=== PATIENT | female | born 1970 | race Caucasian/White ===

== ENCOUNTER → 2017-01-11 | Outpatient (CLI) | payer BC ==
[~2017-01-11] MED LIST: ALBU8.5H INH; ETAN50DI SQ; FOLI1TAB15 PO; HYDR-4246 PO; HYDR200T4 PO; LEVO100T12 PO; MELO15TA12 PO; MONT10TA25 PO; OXYM30MI9 NAS; P-EP-93 PO; PREG225C PO
[2017-01-11 18:03] LABS: BASOPHILS % (AUTO) 0.5 % (0-2); EOSINOPHILS # (AUTO) 0.2 T/MM3 (0-0.5); EOSINOPHILS % (AUTO) 2.4 % (0-4); HCT - HEMATOCRIT 41.5 % (36-46); HGB - HEMOGLOBIN 13.7 GM/DL (12-16); IMMATURE GRANULOCYTE # (AUTO) 0.03 T/MM3 (0.00-0.03); IMMATURE GRANULOCYTE % (AUTO) 0.4 % (0.0-0.5); LYMPHOCYTES # (AUTO) 2.6 T/MM3 (1-4.8); LYMPHOCYTES % (AUTO) 31.8 % (23-45); MEAN CORPUSCULAR HGB 29.8 UUG (26-34); MEAN CORPUSCULAR VOLUME 90.2 UM3 (80-100); MEAN PLATELET VOLUME 9.8 UM3 (9.4-12.4); MONOCYTES # (AUTO) 0.4 T/MM3 (0-0.8); MONOCYTES % (AUTO) 5.1 % (0-9.0); NEUTROPHILS #(AUTO)-ABSOLUTE 4.9 T/MM3 (1.8-7.7); NEUTROPHILS % (AUTO) 59.8 % (33-66); WBC - WHITE BLOOD COUNT 8.2 T/MM3 (4.5-11.0)
[2017-01-11 18:13] LABS: ALBUMIN 4.4 G/DL (3.5-5.0); ALBUMIN/GLOBULIN RATIO 1.5 RATIO (1.1-2.2); ALKALINE PHOSPHATASE 63 U/L (38-126); ALT (SGPT) 33 U/L (9-52); ANION GAP 12 MEQ/L (5-15); AST (SGOT) 30 U/L (14-36); BUN/CREATININE RATIO 10 RATIO (6-26); CALCIUM 9.6 MG/DL (8.4-10.2); CHLORIDE 107 MEQ/L (98-107); CO2 - CARBON DIOXIDE 28 MEQ/L (22-30); CREATININE 1.2 MG/DL (0.7-1.2); GLOMERULAR FILTRATION RATE 49; GLUCOSE 100 MG/DL (65-110); POTASSIUM 4.1 MEQ/L (3.6-5); SODIUM 147 MEQ/L (134-144); TOTAL PROTEIN 7.4 G/DL (6.3-8.2)
== END ==
LOC: LAB 17:44
PROVIDERS: ATTEND Family Medicine
DX: Z01.818 Encounter for other preprocedural examination (principal)
CPT/HCPCS: 36415; 80053; 85025

== ENCOUNTER 2017-01-24 06:51 | Inpatient (IN) | payer BC ==
--- NOTE | 2017-01-10 16:39 | NUR ---
JOINT REPLACEMENT PREOP CLASS PATIENT ATTENDED JOINT REPLACEMENT PREOP CLASS. CASE MANAGEMENT CONTACT INFORMATION PROVIDED. EDUCATION WAS PROVIDED REGARDING WHAT TO EXPECT BEFORE, DURING AND AFTER SURGERY. INCLUDING: OVERVIEW OF ANATOMY AND PHYSIOLOGY HOSPITAL TREATMENT SCHEDULE THERAPY DEMONSTRATION CASE MANAGEMENT RESPONSIBILITIES DISCHARGE PLANNING EQUIPMENT NEEDS JOINT REPLACEMENT WORKBOOK ANTI-COAGULATION SURGERY STRONG NUTRITIONAL PROTOCOL DISCHARGE INSTRUCTIONS [facility] PATIENT PORTAL, WITH INSTRUCTIONS CJR AND PREOP SURVERY PREOP BATHING- CHG GIVEN ALL PATIENT'S QUESTIONS ANSWERED TO THEIR SATISFACTION. PATIENTS AND COACHES ENCOURAGED TO CALL WITH ANY ADDITIONAL QUESTIONS OR CONCERNS. CM FOLLOWING FOR TRANSITIONAL CARE PLANNING NEEDS DURING HOSPITALIZATION.
--- NOTE | 2017-01-19 10:38 | NUR ---
Telephone conversation to inform patient that Dr Harvey (patient scheduling manager) recommends that she hold her Enbrel injection on 01-23-17 and until the stitches/ekaterina are removed. Ok to continue Plaquenil. Patient expressed understanding.
--- NOTE | 2017-01-23 14:33 | NUR ---
NN CHECK OXIMETER IMMEDIATELY AFTER AMBULATING TO GET A PREOP BASELINE READING.
[2017-01-24] VITALS (28 sets, daily range): BP systolic 96–135; BP diastolic 53–69; PULSE 68–102; RESP 12–20; TEMP 97.1–98.7; O2SAT 91–100; Ht 160 cm; Wt 97.2 kg
[~2017-01-24] VITALS: Ht 160 cm; Wt 97.2 kg
[~2017-01-24 06:51] MED LIST changes: +CLINDAMYCIN 900mg IVPB 50 ML IV ONE; +FAMOTIDINE 20mg IVPB 50 ML IV ONE; +FLUT9.9S EA NOSTRIL; +HYDR-3989 PO; -HYDR-4246 PO; +LIDOCAINE 1% (10mg/ml) 2ml SDV ID ONE; -MELO15TA12 PO; +METOCLOPRAMIDE 10mg/2ml INJECTION IV ONE; -OXYM30MI9 NAS; +SULF1TAB42 PO; +TRAM50TA4 PO
--- OUTSIDE RECORDS SUMMARY | 2017-01-24 06:57 | XMS REPORT | Continuity of Care Document ---
Author Author KELLY [facility] Organization [facility] Address Unknown Phone Unavailable Support Name Relationship Address Phone MECCA MORENO MD Caregiver [address] [place] [id number] Unavailable FEBRUARYHUE DO Caregiver [address] [place] [address] Unavailable CADENCE MEARZ Next Of Kin [address] [place] [id number] C Insurance Providers Guarantor Chinedu Meraz Address [address] [facility] [place] [address] Email [email or web address] Policy Number [id number] Subscriber's Name Chinedu Meraz Relationship 18 Self Group Number [id number] Advance Directives Directive Response Recorded Date/Time Advanced Directives Type None 11/24/16 9:41pm Chief Complaint and Reason for Visit Chief Complaint Dyspnea/Respdistress Reason for Visit Allergic asthma [id number] GERD (gastroesophageal reflux disease) Problems Past Problems Medical Problem Onset Date Allergic asthma Unknown GERD (gastroesophageal reflux disease) Unknown RL (obstructive sleep apnea) Unknown Pneumonitis, aspiration Unknown Medications Current Home Medications Medication Dose Units Route Directions Days Qty Instructions Start Date Albuterol Sulfate (Proair Hfa 90 Mcg/Actuation) 8.5 Gm Hfa.aer.ad 2 Puff Inhalation Every 4 Hours for Shortness Of Air/Wheezing 30 Days 1 Inhaler 11/24/16 Etanercept (Enbrel) 50 Mg/1 Ml Syringe 50 Mg Sub-Q 1 Week 12 Syringe 10/14/16 Folic Acid 1 Mg Tablet 2 Tab Oral Daily 10/14/16 Hydrocodone/Acetaminophen ([place] 5-325 Tablet) 5-325 Tablet 1-2 Tab Oral Every 4 Hours as needed for Pain 30 Tablet 10/15/16 Hydroxychloroquine Sulfate 200 Mg Tablet 1 Tab Oral Twice Daily With Meals BEST TAKEN WITH FOOD 10/14/16 Levothyroxine Sodium 100 Mcg Tablet 1 Tab Oral Before Breakfast Once daily before breakfast 10/14/16 Loratadine/Pseudoephedrine (Claritin-D 12 Hour Tablet) 1 Each Tab.er.12h 10 Mg Oral Twice A Day Take 1 tablet, by mouth, 2 times a day. 10/14/16 Meloxicam (Mobic) 15 Mg Tablet 15 Mg Oral Daily 60 11/24/16 Montelukast Sodium 10 Mg Tablet 10 Mg Oral Bedtime Take 1 tablet, by mouth, one time a day (at bedtime). 10/14/16 Oxymetazoline Hcl (Nasal [place]) 30 Ml Mist 1 [place] Intranasal As Needed 10/14/16 Pregabalin (Lyrica) 225 Mg Capsule 1 Cap Oral Twice A Day Social History Social History Problem Response Recorded Date/Time Onset Date Status Has the pt used tobacco in the last 12 months No 10/14/2016 7:22pm Not Applicable Not Applicable Query Response Start Date Stop Date Smoking Status Never smoker Hospital Discharge Instructions No hospital discharge instructions. Plan of Care Discharge Date 11/24/16 11:34pm Disposition 01 DISCHARGED HOME, SELF-CARE Condition at Discharge Improved Instructions/Education Provided Reactive Airways Disease (ED) Prescriptions See Medication Section Referrals MECCA MORENO MD Order Date: 1 Week Address: [address] [place] [address] [place] [address] Note: Additional Instructions/Education You have lung and throat irritation caused by stomach acid refluxing into your esophagus. Your reflux is probably caused by your now untreated sleep apnea. Follow up with your doctor to discuss treatment of your asthma, reflux, and sleep apnea. I would recommend that you work with your doctor to find a way to tolerate your CPAP. Follow up with your doctor. Care Plan and Goals Physician Care Plan Problem: Asthma exacerbation Goal: Follow up with primary care provider Instructions: Take medications and follow care plan as discussed/written Functional Status No functional status results. Allergies, Adverse Reactions, Alerts Allergen Type Severity Reaction Status Last Updated Penicillin Allergy Mild HIVES Active 11/24/16 Lee And Derivatives Adverse Reaction Severe Active 11/24/16 Codeine Allergy Mild Active 11/24/16 Cephalexin Allergy Mild HIVES Active 11/24/16 Azithromycin Allergy Mild HIVES Active 11/24/16 Immunizations Query Response on File Recorded Date/Time Hx Influenza Vaccination Y 2015 10/14/16 7:22pm Hx Pneumococcal Vaccination Y 3 YEARS AGO 10/14/16 7:22pm Hx Influenza Vaccination Y JUL. 201510/14/16 7:22pm Influenza Vaccine Hx 2015 11/24/16 10:41pm Vital Signs Acute Vital Signs Vital Response Date/Time Temperature (Fahrenheit) 98.8 deg F (96.8 - 99.1) 11/24/2016 11:34pm Temperature (Calculated Celsius) 37.05857 degrees C (36.0 - 37.3) 11/24/2016 11:34pm Temperature Source Oral 10/15/2016 7:30pm Pulse Rate (adult) 75 bpm (60 - 100) 11/24/2016 11:34pm Respiratory Rate 16 breaths/min (10 - 20) 11/24/2016 11:34pm O2 Sat by Pulse Oximetry 99 % (90 - 100) 11/24/2016 11:34pm Oxygen Delivery Method Room Air 10/15/2016 7:30pm Oxygen Delivery Method Room Air 10/15/2016 4:17pm Oxygen Flow Rate 2.00 L/min 10/15/2016 11:35am Blood Pressure 106/59 mm Hg 11/24/2016 11:34pm Blood Pressure Source Automatic Cuff 10/15/2016 7:30pm Height (Feet) 5 feet 11/24/2016 9:41pm Height (Inches) 3.00 inches 11/24/2016 9:41pm Weight (Kilograms) 100.100 kg 11/24/2016 9:41pm Body Mass Index (BMI) 39.0 11/24/2016 9:41pm Results Laboratory Results Test Name Result Units Flags Reference Collection Date/Time Result Date/ Time Comments White Blood Count 9.4 T/MM3 4.5-11.0 10/14/2016 4:54pm 10/14/2016 5: 16pm Red Blood Count 4.72 M/MM3 4.00-5.20 10/14/2016 4:54pm 10/14/2016 5: 16pm Hemoglobin 14.1 GM/DL 12-16 10/14/2016 4:54pm 10/14/2016 5:16pm Hematocrit 42.3 % 36-46 10/14/2016 4:54pm 10/14/2016 5:16pm Mean Corpuscular Volume 89.6 UM3 80-100 10/14/2016 4:54pm 10/14/2016 5: 16pm Mean Corpuscular Hemoglobin 29.9 UUG 26-34 10/14/2016 4:54pm 2016 5:16pm Mean Corpuscular Hemoglobin Concent 33.3 GM/DL 31-37 10/14/2016 4:54pm 10/14/2016 5:16pm RDW Standard Deviation 42.5 FL 36.9-50.2 10/14/2016 4:54pm 10/14/2016 5 :16pm Platelet Count 204 T/MM3 130-400 10/14/2016 4:54pm 10/14/2016 5:16pm Mean Platelet Volume 9.9 UM3 9.4-12.4 10/14/2016 4:54pm 10/14/2016 5: 16pm Neutrophils (%) (Auto) 67.3 % H 33-66 10/14/2016 4:54pm 10/14/2016 5: 16pm Lymphocytes (%) (Auto) 26.5 % 23-45 10/14/2016 4:54pm 10/14/2016 5: 16pm Monocytes (%) (Auto) 4.5 % 0-9.0 10/14/2016 4:54pm 10/14/2016 5:16pm Eosinophils (%) (Auto) 1.4 % 0-4 10/14/2016 4:54pm 10/14/2016 5:16pm Basophils (%) (Auto) 0.2 % 0-2 10/14/2016 4:54pm 10/14/2016 5:16pm Immature Granulocyte % (Auto) 0.1 % 0.0-0.5 10/14/2016 4:54pm 2016 5:16pm Absolute Neutrophils (auto) 6.3 T/MM3 1.8-7.7 10/14/2016 4:54pm 2016 5:16pm Absolute Lymphocytes (auto) 2.5 T/MM3 1-4.8 10/14/2016 4:54pm 2016 5:16pm Absolute Monocytes (auto) 0.4 T/MM3 0-0.8 10/14/2016 4:54pm 10/14/2016 5:16pm Absolute Eosinophils (auto) 0.1 T/MM3 0-0.5 10/14/2016 4:54pm 2016 5:16pm Absolute Basophils (auto) 0.0 T/MM3 0-0.2 10/14/2016 4:54pm 10/14/2016 5:16pm Absolute Immature Granulocyte (auto 0.01 T/MM3 0.00-0.03 10/14/2016 4: 54pm 10/14/2016 5:16pm Icterus Index < 2 0-7 10/14/2016 4:54pm 10/14/2016 5:21pm Chemistry Specimen Hemolysis < 15 0-25 10/14/2016 4:54pm 10/14/2016 5 :21pm 0-25: Specimen Exhibited No Hemolysis. Turbidity < 20 0-20 10/14/2016 4:54pm 10/14/2016 5:21pm Sodium Level 144 MEQ/L 134-144 10/14/2016 4:54pm 10/14/2016 5:21pm Potassium Level 4.0 MEQ/L 3.6-5 10/14/2016 4:54pm 10/14/2016 5:21pm Chloride Level 106 MEQ/L 98-107 10/14/2016 4:54pm 10/14/2016 5:21pm Carbon Dioxide Level 28 MEQ/L 22-30 10/14/2016 4:54pm 10/14/2016 5: 21pm Anion Gap 10 MEQ/L 5-15 10/14/2016 4:54pm 10/14/2016 5:21pm Blood Urea Nitrogen 13.0 MG/DL 7-17 10/14/2016 4:54pm 10/14/2016 5: 21pm Creatinine 1.1 MG/DL 0.7-1.2 10/14/2016 4:54pm 10/14/2016 5:21pm BUN/Creatinine Ratio 12 RATIO 6-26 10/14/2016 4:54pm 10/14/2016 5:21pm Glomerular Filtration Rate Calc 54 10/14/2016 4:54pm 10/14/2016 5: 21pm Glucose Level 90 MG/DL 65-110 10/14/2016 4:54pm 10/14/2016 5:21pm Calculated Osmolality 277 MOSM/KG 261-280 10/14/2016 4:54pm 10/14/2016 5:21pm Calcium Level 9.8 MG/DL 8.4-10.2 10/14/2016 4:54pm 10/14/2016 5:21pm Total Bilirubin 1.00 MG/DL 0.20-1.30 10/14/2016 4:54pm 10/14/2016 5: 21pm Alkaline Phosphatase 58 U/L 38-126 10/14/2016 4:54pm 10/14/2016 5:21pm Total Protein 7.5 G/DL 6.3-8.2 10/14/2016 4:54pm 10/14/2016 5:21pm Albumin 4.6 G/DL 3.5-5.0 10/14/2016 4:54pm 10/14/2016 5:21pm Globulin 2.9 G/DL 2.4-3.6 10/14/2016 4:54pm 10/14/2016 5:21pm Albumin/Globulin Ratio 1.6 RATIO 1.1-2.2 10/14/2016 4:54pm 10/14/2016 5 :21pm Aspartate Amino Transf (AST/SGOT) 23 U/L 14-36 10/14/2016 4:54pm 2016 5:21pm Alanine Aminotransferase (ALT/SGPT) 35 U/L 9-52 10/14/2016 4:54pm 10/14 5:21pm Lipase 59 U/L 23-300 10/14/2016 4:54pm 10/14/2016 5:21pm Serum Amylase 45 U/L 25-125 10/14/2016 4:54pm 10/14/2016 9:17pm Amylase performed at [facility], [address] [place] [address] Food Safety Auditor Elisha Milan, DO Procedures Procedure Status Date Provider(s) Ct abd & pelvis w/o contrast Completed 10/14/16 Comprehen metabolic panel Completed 10/14/16 Assay of amylase Completed 10/14/16 Assay of lipase Completed 10/14/16 Complete cbc w/auto diff wbc Completed 10/14/16 Laparoscopy appendectomy Completed 10/14/16 ALLIE BALLARD MD Hydrate iv infusion add-on Completed 10/14/16 Ther/proph/diag iv inf init Completed 10/14/16 Tx/proph/dg addl seq iv inf Completed 10/14/16 Initial observation care Completed 10/14/16 Initial observation care Completed 10/14/16 Initial observation care Completed 10/14/16 [id number]"INJECTION, DEXAMETHASONE SODIUM PHOSPHATE, 1MG" Completed 10/14/16"INJECTION, HYDROMORPHONE, UP TO 4 MG" Completed 10/14/16"INJECTION, KETOROLAC TROMETHAMINE, PER 15 MG" Completed 10/14/16"INJECTION, LEVOFLOXACIN, 250 MG" Completed 10/14/16"INJECTION, ONDANSETRON HYDROCHLORIDE, PER 1 MG" Completed 10/14/16"INJECTION, ONDANSETRON HYDROCHLORIDE, PER 1 MG" Completed 10/14/16"INJECTION, NEOSTIGMINE METHYLSULFATE, UP TO 0.5 MG" Completed "INJECTION, METOCLOPRAMIDE HCL, UP TO 10 MG" Completed 10/14/16"INJECTION, FENTANYL CITRATE, 0.1 MG" Completed 10/14/16"INFUSION, NORMAL SALINE SOLUTION , 250 CC" Completed 10/14/16"RINGERS LACTATE INFUSION, UP TO 1000 CC" Completed 10/14/16"RINGERS LACTATE INFUSION, UP TO 1000 CC" Completed 10/14/16"RINGERS LACTATE INFUSION, UP TO 1000 CC" Completed 10/14/16"INJECTION, BUPIVICAINE HYDROCHLORIDE, 30 ML" Completed 10/14/16"INJECTION, METRONIDAZOLE, 500 MG" Completed 10/14/16"INJECTION, METRONIDAZOLE, 500 MG" Completed 10/14/16 Breast tomosynthesis bi Completed 11/17/16"SCREENING MAMMOGRAPHY, PRODUCING DIRECT DIGITAL IMAGE Completed Encounters Encounter Location Arrival/Admit Date Discharge/Depart Date Attending Provider Departed Emergency Room [facility] 11/24/16 9:19pm 11/24/16 11: 34pm FEBRUARYHUE DO Registered [facility] 11/17/16 4:17pm [facility] Departed Surgical Day Care [facility] 10/14/16 7:01pm 10/15/16 7: 45pm ALLIE BALLARD MD Registered [facility] 10/14/16 4:32pm GAURAV LEBLANC APRN Recent Diagnosis
[2017-01-24] MEDS ORDERED: LR 1,000 ML IV PRN (07:00)
[2017-01-24] MEDS ORDERED: DEXAMETHASONE 4mg/ml - 1ml INJECTION IV ONE (07:00)
[2017-01-24] MEDS ORDERED: ONDANSETRON 4mg/2ml INJECTION IV ONE (07:00)
[2017-01-24] MEDS ORDERED: ACETAMINOPHEN 500 MG TABLET PO ONE (07:00)
[2017-01-24] MEDS: NOZIN NASAL SWAB NS ONE ×2 (07:50→13:37)
[2017-01-24] MEDS ORDERED: EPINEPHRINE 0.25 MG, BUPIVACAINE 0.25% 75 MG, MORPHINE SULFATE 15 MG, KETOROLAC 60 MG i... INJ ONE ×5 (08:00)
--- NOTE | 2017-01-24 08:02 | ANESPREOP ---
Anesthesia Record Date and Time DATE: 01/24/17 TIME: 08:00 Pre-Op Diagnosis severe deg OA Right Knee Proposed Surgical Procedure RT TKA Allergies: Coded Allergies: Penicillins (Verified Allergy, Mild, HIVES, 01/24/17) azithromycin (Verified Allergy, Mild, HIVES, 01/24/17) cephalexin (Verified Allergy, Mild, HIVES, 01/24/17) [place] And Derivatives (Verified Allergy, Unknown, ITCHING, LOW BP, ) EPI PEN garlic (Verified Allergy, Unknown, 01/24/17) PER H&P DATED 01-11-17 codeine (Verified Adverse Reaction, Unknown, N/V, 01/24/17) corn (Verified Adverse Reaction, Unknown, GI UPSET, 01/24/17) soy (Verified Adverse Reaction, Unknown, GI UPSET, 01/24/17) Ht/Wt/BMI Height: 5 ' 3.00 " Weight: 97.200 kg BMI: 38.0 kg/m2 Vital Signs Date Time Temp Pulse Resp B/P Pulse Ox O2 Delivery O2 Flow Rate FiO2 01/24/17 07:09 98.7 73 14 106/58 97 Room Air Medications Inpatient Medications Current Medications Medications (Trade) Dose Ordered Sig/Bennett Start Time Stop Time Status Last Admin Dose Admin Lactated Ringer's (Lactated Ringers) 1,000 ml @ 50 mls/hr Q20H PRN 01/24/17 07:00 01/24/17 07:49 50 MLS/HR Albuterol Sulfate (Proair HFA 90 mcg/actuation) 8.5 Gm Hfa.aer.ad, 2 PUFF INH Q4H PRN for WHEEZING, (Reported) Last Taken: on Unknown Date & Time Etanercept (Enbrel) 50 Mg/1 Ml Syringe, 50 MG SQ 1 WEEK, (Reported) EVERY MONDAY Last Taken: on 01/16/17 Fluticasone Propionate (Flonase Allergy Relief 50 mcg/actuation Nasal) 9.9 Ml [place].susp, 1 SPRAY EA NOSTRIL BID, (Reported) Last Taken: on Unknown Date & Time Folic Acid (Folic Acid) 1 Mg Tablet, 2 TAB PO DAILY, (Reported) Last Taken: on 01/23/17 0730 Hydrocodone/Apap ([place] 5-325 Tablet) 5-325 Tablet, 1-2 TAB PO Q4-6HPRN PRN for PAIN, (Reported) Last Taken: on Unknown Date & Time Hydroxychloroquine Sulfate ( Hydroxychloroquine Sulfate) 200 Mg Tablet, 1 TAB PO BIDWM, (Reported) BEST TAKEN WITH FOOD Last Taken: on 01/23/171999 Levothyroxine Sodium (Levothyroxine Sodium) 100 Mcg Tablet, 1 TAB PO ACB, (Reported) Once daily before breakfast Last Taken: on 01/23/17 0700 Loratadine/Pseudoephedrine (Claritin-D 12 Hour Tablet) 1 Each Tab.er.12h, 10 MG PO HS, (Reported) Last Taken: on 01/23/171999 Montelukast Sodium (Montelukast Sodium) 10 Mg Tablet, 10 MG PO HS, (Reported) Take 1 tablet, by mouth, one time a day (at bedtime). Last Taken: on 01/23/171999 Pregabalin (Lyrica) 225 Mg Capsule, 1 CAP PO BID, (Reported) Last Taken: on 01/23/171999 Sulfamethoxazole/Trimethoprim (Bactrim Ds Tablet) 1 Each Tablet, 1 TAB PO BID, (Reported) Take 1 tablet, by mouth, 2 times a day. Last Taken: on 01/23/171999 Tramadol HCl (Tramadol HCl) 50 Mg Tablet, 50 MG PO QID PRN for PAIN, (Reported) Take 1 tablet, by mouth, 4 times a day. Last Taken: on Unknown Date & Time Currently on Beta Alberto: No Medical/Surgical History Anesthesia PMH: Reports: *Dyspnea (EXERCISE INDUCED), Anxiety, Arthritis (RA, DJD RT KNEE), Asthma (PULM NODULES, NO CHANGE X3 YEARS PER H&P), Sleep Apnea, Thyroid Disease, Denies: *Diabetes, *Hypertension, *ID, Anesthesia Reactions ( NO KNOWN AIRWAY ISSUES), Blood Transfusion Reac, CHF, COPD (PATIENT DENIES HISTORY), CVA/Stroke/TIA, Cancer, Glaucoma, Malignant Hyperthermia, Pacemaker, Seizures Smoking Status: Never smoker Use Chewing Tobacco?: No Second Hand Exposure: No Substance Use Type: does not use Alcohol Intake: none, rarely HX of Last Menstrual Period: HYST Past Surgical History Orthopedic Surgeries: Yes - CARPAL TUNNEL Abdominal Surgeries: Yes - LAP APPY Genitourinary Surgeries: No Cardiac Surgeries: No Endocrine Surgeries: No Reproductive Surgeries: Yes - VAG HYST, NICOLAS BREAST BIOPSIES Neurological Surgeries: Yes - LT CTR Ear Surgeries: No Nose Surgeries: No Throat Surgeries: Yes - T&A Other Surgeries: Yes - BREAST BX - Anesthesia Adverse Reactions: FOUND none Family Hx of Anesthesia Advers: none Hx of Motion Sickness: No Pertinent Findings EKG Rhythm: Sinus Rhythm Physical Exam Respiratory: Bilat breath sounds equal, Lungs clear Cardiovascular: FOUND Regular rate, rhythm, FOUND No murmur Airway Assessment Mallampati Score: I TMD: 3 Fingerbreadths Neck Extension: Good Overall Assessment: No Airway Concerns ASA: 2 Discussion Discussed risks/options/alternatives of anesthesia and questions answered. Patient consents. Nursing pain assessment noted. Attestation Statement Prior to the delivery of any anesthetic medication, I examined the patient, developed the plan, obtained the patient's consent and discussed the risk and benefits of the procedure with the patient/guardian. ABBIE MARTINEZ CRNA Jan 24, 2017 08:02
[2017-01-24] MEDS ORDERED: PROPOFOL 200mg 200 MG, ESMOLOL 50 MG, KETAMINE 50 MG, LIDOCAINE 2% 100 MG, MAGNESIUM SU... IV ONE ×7 (08:30)
[2017-01-24] MEDS ORDERED: VANCOMYCIN 1 GRAM INJECTION ONE (08:40)
[2017-01-24] MEDS ORDERED: FENTANYL 100mcg/2ml INJECTION IV ONE (08:49)
[2017-01-24] MEDS ORDERED: ROPIVACAINE 0.5% (5mg/ml) 30ml INJ INJ ONE (08:49)
[2017-01-24] MEDS ORDERED: HYDROMORPHONE 2mg/ml INJECTION IV ONE (08:49)
[2017-01-24] MEDS ORDERED: TRANEXAMIC ACID 1,000 MG in NORMAL SALINE 100 ML IV ONE ×2 (10:00→11:00)
--- NOTE | 2017-01-24 10:37 | PDOPERATE ---
Operative Report Date of Operation 01/24/17 Side: Right Preoperative Diagnosis: knee primary DJD Postoperative Diagnosis Same as preoperative diagnosis. Operation/Procedure: total knee arthroplasty (right) Surgeon José Luis Stevenson MD Coal Hauler Operator JJ Patton Complications None. Anesthesia Plan: GETA Estimated Blood Loss See Anesthesia Record. Fluids Please See Anesthesia Record. Description of Operation Ms. Meraz and her right knee were identified and marked in the the preoperative holding area. She was then brought back to the operating suite and proper anesthesia was administered. She was then positioned supine on the operating table. The right lower extremity was then prepped and draped in my normal sterile fashion. Timeout was performed with all operating room personnel. The leg was exsanguinated and tourniquet inflated 250 mmHg. A standard anterior incision followed by a medial parapatellar approach was utilized. The majority of her arthritis was in the medial compartment. A distal femoral cut was made in 5 of valgus using intramedullary guide. The femur was sized at a 3 and rotation set using the epicondylar axis. Distal femoral cuts were performed. A proximal tibial cut was made using extramedullary guide. Remaining osteophytes and meniscus were removed. Gaps were checked and they were well balanced and rectangular. Trial components were placed with a 11 mm spacer. The tourniquet was then let down. She had full range of motion and the patella tracked well. The knee was stable throughout range of motion. The patella was resurfaced with the knee in extension to a size 29. The tibia rotation was then marked and the tibia stamped at the proper rotation at a size 3. The tourniquet was then reinflated. The bone was prepared for cementing and all components cemented into place and allowed to cure in extension. Betadine solution was used for 3 minutes during the curing period and then fully irrigated out with 1 L of normal saline. The tourniquet was deflated and hemostasis obtained with electrocautery. After the cement had cured the knee was taken through range of motion check for balance and stability which were good. Vancomycin powder was placed into the wound. The arthrotomy was closed with #1 Vicryl. The remainder of the wound was then closed by my fundraising assistant utilizing 2-0 vycral in the subcutaneous tissue. 4-0 monocryl was used in the subcuticular layer followed by dermabond and a sterile dressing. After closure the patient will be transferred to the recovery room under the care of anesthesia. LUCY STEVENSON MD Jan 24, 2017 10:37
[2017-01-24] MEDS ORDERED: PRN ORDERS MC (11:15)
[2017-01-24] MEDS ORDERED: DiphenhydrAMINE 50 MG/ML INJECTION IV PRN (11:15)
[2017-01-24] MEDS ORDERED: METOCLOPRAMIDE 10mg/2ml INJECTION IV PRN (11:15)
[2017-01-24] MEDS ORDERED: SENNOSIDES 8.6 MG TABLET PO PRN (11:15)
[2017-01-24] MEDS ORDERED: NOZIN NASAL SWAB NS ONE (11:15)
[2017-01-24] MEDS ORDERED: DiphenhydrAMINE 25 MG CAPSULE PO PRN (11:15)
[2017-01-24] MEDS ORDERED: LORAZEPAM 1 MG TABLET PO PRN (11:15)
[2017-01-24] MEDS: NORMAL SALINE 1,000 ML IV SCH (11:27)
[2017-01-24] MEDS: ONDANSETRON 4mg/2ml INJECTION IV PRN ×2 (11:35→14:36)
--- NOTE | 2017-01-24 11:40 | ANESPO ---
Post-Op Note Date 01/24/17 Time: 11:39 Status Pt Participated in Evaluation: Pt participated in person Vital Signs Date Time Temp Pulse Resp B/P Pulse Ox O2 Delivery O2 Flow Rate FiO2 01/24/17 09:03 73 14 97 Room Air 01/24/17 07:09 98.7 106/58 Respiratory Function: Airway patent, Regular respirations Cardiovascular Function: Regular pulse Telemetry Pattern: SR Mental Status: Alert/oriented Pain Level Intensity: 0 Unable to Assess Pain Due To: INTRA OP Hydration: IV infusing Complications during Recovery None apparent Follow-Up Instructions Instructions Per Surgeon ABBIE MARTINEZ CRNA Jan 24, 2017 11:40
[2017-01-24] MEDS ORDERED: ONDANSETRON 4mg/2ml INJECTION IV PRN (11:45)
--- NOTE | 2017-01-24 11:48 | ANESPD ---
Peripheral Nerve Blockade Physician: John Stevenson MD Date: 01/24/17 Surgical Procedure: Right TKA Discussion Discussed risks/options/alternatives of anesthesia and questions answered. Patient consents. Nursing pain assessment noted. Block Start: 11:15 Block Stop: 11:18 Block Employed: Adductor Canal Indication: post-operative pain Approach: right side confirmed Position: supine Patient: Consent, risks/benefits discussed, Informed, post block act. discussed Monitors: EKG, SpO2, NIBP IV Sedation: No Sedation: Awake Initial Vital Signs First Documented Vital Signs Date Time Temp Pulse Resp B/P Pulse Ox O2 Delivery O2 Flow Rate FiO2 01/24/17 07:09 98.7 73 14 106/58 97 Room Air Post Vital Signs Vital Signs Date Time Temp Pulse Resp B/P Pulse Ox O2 Delivery O2 Flow Rate FiO2 01/24/17 11:09 98.0 102 12 109/63 95 Room Air Initial Pain Score: 0 Post Block Score: 0 Prep: chlorhexadine/ETOH Ultrasound Used?: Yes Nerve Simulator Muscle Response: No Parathesia/Pain: none Injectate Ropivacaine (%): 0.5 Ropivacaine (mL): 20 Was Epi 1:200,000 Used?: No Injection Injection made incrementally with constant monitoring and aspiration every [5] ml. ABBIE MARTINEZ CRNA Jan 24, 2017 11:48
[2017-01-24] MEDS ORDERED: KETOROLAC 30mg/ml INJECTION IV ONE (12:00)
--- NOTE | 2017-01-24 12:01 | DI ---
Indication: ITS.REASON: POSTOP right knee replacement PROCEDURE: KNEE RIGHT 2 VIEW: Encounter: Initial Comparison: None Findings: Postoperative changes of right total knee replacement are seen. There is expected postoperative subcutaneous gas. No evidence of hardware failure or acute fracture. No retained radiopaque surgical instruments or sponges. Overlying material causing artifact. Impression: New right total knee prosthesis without evidence of immediate complication. .
--- NOTE | 2017-01-24 12:17 | NUR ---
ARRIVAL PT TO ROOM 121 PER CART. PT TRANSFERRED SELF FROM CART TO BED. VS STABLE. PT ON RA AT TIME OF ARRIVAL, O2 PUT ON DUE TO PT DESATTING WHILE DOZING OFF. PT STATES SHE IS "HAVING SOME NAUSEA BUT NOT TOO BAD". PAIN IS RATED AT A 2/10. THIS RN ASKED WHAT AN ACCEPTABLE PAIN LEVEL WAS AND PT STATED 7/10 AND SHE HAS A "HIGH PAIN TOLERANCE" DERMABOND MEPILEX, WILDER WRAP, AND POLAR PACK TO RIGHT KNEE. C/D/I. STRONG BILATERAL PEDAL PULSES. PT ORIENTED TO SURROUNDINGS. BED ALARM ON. CALL LIGHT WITHIN REACH. WILL CONTINUE TO MONITOR.
[2017-01-24] MEDS ORDERED: NOZIN NASAL SWAB NS SCH (14:00)
[2017-01-24] MEDS ORDERED: ALBUTEROL INH.SOLN. 2.5mg/3ml (0.083%) Neb. AEROSOL PRN (15:00)
[2017-01-24] MEDS: CLINDAMYCIN 900mg IVPB 50 ML IV SCH ×2 (15:14→21:29)
[2017-01-24] MEDS: HYDROXYCHLOROQUINE 200 MG TABLET PO SCH (16:55)
--- NOTE | 2017-01-24 19:55 | NUR ---
STATUS PT A/O X3. TOLERATING REGULAR DIET. PRN ZOFRAN GIVEN DOCUMENTED AFTER PT WORKED THIS THERAPY AND BECOMING NAUSEATED. PT RATES PAIN AT 2-4/10 AND DENIES NEED FOR PAIN MEDICATION. PT ON RA, TOLERATING WELL. VOIDING ADEQUATELY. PT RESTING IN CHAIR WITH ALARM. CALL LIGHT WITHIN REACH. WILL CONTINUE TO MONITOR.
[2017-01-24] MEDS: MONTELUKAST 10 MG TABLET PO SCH ×2 (21:29→21:54)
[2017-01-24] MEDS: ASPIRIN *EC* 325mg TABLET PO SCH ×2 (21:29→21:54)
[2017-01-24] MEDS: PREGABALIN 150 MG CAPSULE PO SCH ×2 (21:29→21:54)
[2017-01-24] MEDS: LORATADINE/PSE 5/120 TABLET PO SCH ×2 (21:29→21:54)
[2017-01-24] MEDS: PREGABALIN 75 MG CAPSULE PO SCH ×2 (21:29→21:54)
[2017-01-24] MEDS: FLUTICASONE NASAL SPRAY 50 MCG EA NOSTRIL SCH (21:30)
[2017-01-24] MEDS: SENNOSIDES 8.6 MG TABLET PO SCH ×2 (21:30→21:54)
--- NOTE | 2017-01-24 21:55 | NUR ---
emesis after pt given hs meds, pt had 500ml emesis right after. will continue to monitor.
[2017-01-25] VITALS: BP 91/60; PULSE 72; RESP 18; TEMP 97.4; O2SAT 98
[2017-01-25] MEDS: NORMAL SALINE 1,000 ML IV SCH ×2 (00:48→01:03)
[2017-01-25] MEDS: CLINDAMYCIN 900mg IVPB 50 ML IV SCH (03:07)
[2017-01-25 03:13] VITALS: BP 111/66; PULSE 76; RESP 18; TEMP 97.4; O2SAT 98
--- NOTE | 2017-01-25 03:53 | NUR ---
Chart Check 24 hour chart check completed
[2017-01-25 05:29] LABS: HCT - HEMATOCRIT 35.7 % (36-46); HGB - HEMOGLOBIN 11.8 GM/DL (12-16); MEAN CORPUSCULAR HGB CONC(MCHC 33.1 GM/DL (31-37); MEAN CORPUSCULAR VOLUME 90.8 UM3 (80-100); MEAN PLATELET VOLUME 10.4 UM3 (9.4-12.4); RED BLOOD COUNT 3.93 M/MM3 (4.00-5.20); WBC - WHITE BLOOD COUNT 13.3 T/MM3 (4.5-11.0)
[2017-01-25 05:46] LABS: ANION GAP 10 MEQ/L (5-15); BUN/CREATININE RATIO 16 RATIO (6-26); CALCIUM 8.8 MG/DL (8.4-10.2); CHLORIDE 108 MEQ/L (98-107); CO2 - CARBON DIOXIDE 25 MEQ/L (22-30); GLOMERULAR FILTRATION RATE 60; GLUCOSE 109 MG/DL (65-110); POTASSIUM 4.5 MEQ/L (3.6-5); SODIUM 143 MEQ/L (134-144)
[2017-01-25] MEDS ORDERED: LEVOTHYROXINE 100 MCG TABLET PO SCH (06:30)
--- NOTE | 2017-01-25 06:44 | NUR ---
SHIFT SUMMARY PT SLEPT SOUNDLY THROUGHOUT THE NIGHT. DENIED PAIN, NO PRNS GIVEN. PT HAD ONE BOUT OF EMESIS AFTER HS MEDS, SEE PREVIOUS NOTE. PT STATED SHE FELT BETTER AFTERWARDS. UP WITH ASSIST X ONE, GB, AND WALKER TO BATHROOM. SOFT DIET ORDERED FOR BREAKFAST THIS MORNING. NS RUNNING @ 80ML/HR IN RIGHT HAND. VSS, ON RA. AMBULATED IN HALLWAY LAST NIGHT. CONTINUOUS OXIMETRY. BILAT SCD'S. DRESSING TO RIGHT KNEE C/D/I, POLAR PACK IN USE. BED LOCKED AND LOW, BED ALARM ON. CALL LIGHT WITHIN REACH. WILL CONTINUE TO MONITOR.
--- NOTE | 2017-01-25 08:09 | PDORTHOPN ---
Subjective Date DATE: 01/25/17 TIME: 08:04 Subjective Chinedu had some nausea last night but is better this AM. She has tolerated Hydrocodone in the past. Denies CP, cough or SOA. No other concerns. She has been mobile short distances with good tolerance. Objective Vital Signs Vital signs Vital Signs 01/24/17 01/24/17 01/25/17 01/25/17 20:43 22:00 00:00 03:13 Temp 97.4 97.4 97.4 Pulse 81 72 76 Resp B/P 99/59 91/60 111/66 Pulse Ox 100 98 98 O2 Delivery Room Air Nasal Cannula Room Air Room Air O2 Flow Rate 2.00 Height (Feet): 5 Height (Inches): 3.00 Weight (Kilograms): 97.200 General General Appearance: No Acute Distress Respiratory (Brief) Respiratory Brief: FOUND: non-labored Cardiovascular (Brief) Cardiac: FOUND: calf easily compressible, calf soft, nontender, pedal pulses intact Surgical Site Incision: FOUND: Mepilex dressing intact, no drainage Neurologic (Brief) Neurological Brief: FOUND: extremities w/o deficits, neuro intact Psychiatric (Brief) Psychiatric Brief: FOUND: alert, no acute distress Laboratory Laboratory Laboratory Tests 01/25/17 03:58 Laboratory Tests 01/25/17 03:58 Assessment & Plan Problems: (1) Degenerative arthritis of right knee Status: Chronic Qualifiers: Osteoarthritis type: primary Qualified Codes: M17.11 - Unilateral primary osteoarthritis, right knee Assessment & Plan: Pressures are a little low this AM. Will watch to see if they improve with activity. Current anti-coagulation protocol for VTE prophylaxis. SCD's. PT/OT services to improve independent function. Discharge Planning per Case Management. (2) Rheumatoid arthritis Status: Chronic Qualifiers: Rheumatoid arthritis location: multiple sites (3) Anxiety Status: Chronic (4) Fibromyalgia Status: Chronic (5) Hypothyroidism Status: Chronic (6) Obesity (BMI 30-39.9) Status: Chronic (7) RL (obstructive sleep apnea) Status: Chronic Hospital Course Summary Disclaimer The visit summary below is not to be considered part of the above Progress Note. ARIANA CORNELL Jan 25, 2017 08:08 ARIANA CORNELL Jan 25, 2017 08:08
[2017-01-25] MEDS: ACETAMINOPHEN 500 MG TABLET PO PRN ×2 (08:21→15:40)
[2017-01-25] MEDS: PREGABALIN 75 MG CAPSULE PO SCH (08:21)
[2017-01-25] MEDS: HYDROXYCHLOROQUINE 200 MG TABLET PO SCH (08:24)
[2017-01-25] MEDS: ASPIRIN *EC* 325mg TABLET PO SCH (08:24)
[2017-01-25] MEDS: PREGABALIN 150 MG CAPSULE PO SCH (08:25)
[2017-01-25] MEDS: FLUTICASONE NASAL SPRAY 50 MCG EA NOSTRIL SCH (08:25)
[2017-01-25 08:29] VITALS: BP 109/61; PULSE 82; RESP 14; TEMP 96.3; O2SAT 100
[2017-01-25] MEDS ORDERED: DOCUSATE SODIUM 100 MG CAPSULE PO SCH (09:00)
[2017-01-25] MEDS ORDERED: FOLIC ACID 1 MG TABLET PO SCH (09:00)
[2017-01-25] MEDS ORDERED: POLYETHYL.GLYCOL 3350 PACKET 17gm PO SCH (09:00)
[2017-01-25 12:28] VITALS: BP 110/60; PULSE 77; RESP 16; TEMP 97.8; O2SAT 100
--- NOTE | 2017-01-25 13:26 | NUR ---
CM CM IN TO VISIT WITH PT. SHE IS ALERT AND ORIENTED. SHE PLANS TO RETURN HOME. SHE HAS FWW. SHE WILL DO OUTPT PT AT [facility]. SHE IS GIVEN CM CONTACT INFORMATION. Addendum: 01/25/17 at 1327 by MANUEL DOWLING RN Amended: Links added.
[2017-01-25] MEDS ORDERED: ASPI-917 PO (13:44)
[2017-01-25] MEDS ORDERED: POLY17PO18 PO (13:44)
[2017-01-25] MEDS ORDERED: OXYC1TAB11 PO (13:44)
[2017-01-25] MEDS ORDERED: ACET-2723 PO (13:49)
--- NOTE | 2017-01-25 14:02 | DSPDOC ---
General Date Date DATE: 01/25/17 TIME: 14:01 Attending Physician John Stevenson MD Admitting Physician John Stevenson MD Consulting Physician Admitting Diagnosis PRIMARY DEGENERATIVE JOINT DISEASE RIGHT KNEE Discharge Diagnosis primary DJD right knee Procedures Right total knee arthroplasty Diagnosis Right knee primary DJD History of Present Illness HPI Elements This patient was admitted for elective surgical tx of end stage degenerative joint disease that failed to respond to conservative treatment. Further details of this is found in the admission H&P. Hospital Course After appropriate preoperative clearance and signing of operative consent, the patient was given IV antibiotics, according to orthopedic protocol. The patient was taken to the operating room and underwent elective joint arthroplasty. Following surgery, antibiotics were discontinued less than 24 hours according to joint protocol. Appropriate anticoagulants were initiated and SCDs added for DVT prevention. The dressing was clean, dry, and intact. Pain control was obtained via multimodal approach. Bowel motivation addressed with scheduled and PRN medications. Early mobilization was initiated through PT services. Discharge arrangements made by a collaborative effort between the patient and Case Management. Follow-up is scheduled in 2-3 weeks. Discharge instructions given by orthopedic providers and nursing staff at discharge. Discharge condition was good. Problems: (1) Degenerative arthritis of right knee Status: Chronic Assessment & Plan: Pressures are a little low this AM. Will watch to see if they improve with activity. Current anti-coagulation protocol for VTE prophylaxis. SCD's. PT/OT services to improve independent function. Discharge Planning per Case Management. (2) Rheumatoid arthritis Status: Chronic (3) Anxiety Status: Chronic (4) Fibromyalgia Status: Chronic (5) Hypothyroidism Status: Chronic (6) Obesity (BMI 30-39.9) Status: Chronic (7) RL (obstructive sleep apnea) Status: Chronic Associated Postoperative Event: Acute P.O. Anemia Ongoing Care Required?: No Acute P.O. Anemia: Patient received IVF, No intervention required, HGB drop- acceptable range Leukocytosis: d/t IV Decadron preop, d/t surg. stress response Laboratory Laboratory Tests Test 01/25/17 03:58 White Blood Count 13.3T/MM3 Red Blood Count 3.93M/MM3 Hemoglobin 11.8GM/DL Hematocrit 35.7% Mean Corpuscular Volume 90.8UM3 Mean Corpuscular Hemoglobin 30.0UUG Mean Corpuscular Hemoglobin Concent 33.1GM/DL RDW Standard Deviation 43.3FL Platelet Count 186T/MM3 Mean Platelet Volume 10.4UM3 Turbidity < 20 Sodium Level 143MEQ/L Potassium Level 4.5MEQ/L Chloride Level 108MEQ/L Carbon Dioxide Level 25MEQ/L Anion Gap 10MEQ/L Blood Urea Nitrogen 16.0MG/DL Creatinine 1.0MG/DL Glomerular Filtration Rate Calc 60 BUN/Creatinine Ratio 16RATIO Glucose Level 109MG/DL Calculated Osmolality 277MOSM/KG Calcium Level 8.8MG/DL Icterus Index < 2 Chemistry Specimen Hemolysis < 15 Home Meds Active Scripts Acetaminophen (Tylenol Extra Strength) 500 Mg Tablet, 500-1000 MG PO 8H Y for PAIN, #100 TAB Prov:JAMES HARRIS 01/25/17 Polyethylene Glycol 3350 (Healthylax) 17 Gm Powd.pack, 17 G PO DAILY, #60 PACKET Prov:JAMES HARRIS 01/25/17 Oxycodone HCl/Acetaminophen (Percocet 7.5-325 mg Tablet) 7.5-325 Tablet, 1-2 TAB PO Q4H Y for PAIN, #60 TAB Prov:JAMES HARRIS 01/25/17 Aspirin *EC* (Aspirin EC) 325 Mg Tablet.dr, 325 MG PO BID, #84 TAB Prov:JAMES HARRIS 01/25/17 Reported Medications Sulfamethoxazole/Trimethoprim (Bactrim Ds Tablet) 1 Each Tablet, 1 TAB PO BID, TAB Take 1 tablet, by mouth, 2 times a day. 01/19/17 Tramadol HCl (Tramadol HCl) 50 Mg Tablet, 50 MG PO QID Y for PAIN, TAB Take 1 tablet, by mouth, 4 times a day. 01/19/17 Fluticasone Propionate (Flonase Allergy Relief 50 mcg/actuation Nasal) 9.9 Ml [place].susp, 1 SPRAY EA NOSTRIL BID 01/19/17 Hydrocodone/Apap ([place] 5-325 Tablet) 5-325 Tablet, 1-2 TAB PO Q4-6HPRN Y for PAIN, TAB 01/19/17 Albuterol Sulfate (Proair HFA 90 mcg/actuation) 8.5 Gm Hfa.aer.ad, 2 PUFF INH Q4H Y for WHEEZING, INHALER 12/21/16 Montelukast Sodium (Montelukast Sodium) 10 Mg Tablet, 10 MG PO HS, TAB Take 1 tablet, by mouth, one time a day (at bedtime). 10/14/16 Loratadine/Pseudoephedrine (Claritin-D 12 Hour Tablet) 1 Each Tab.er.12h, 10 MG PO HS, TAB 10/14/16 Pregabalin (Lyrica) 225 Mg Capsule, 1 CAP PO BID 10/14/16 Folic Acid (Folic Acid) 1 Mg Tablet, 2 TAB PO DAILY, TAB 10/14/16 Hydroxychloroquine Sulfate (Hydroxychloroquine Sulfate) 200 Mg Tablet, 1 TAB PO BIDWM, TAB BEST TAKEN WITH FOOD 10/14/16 Etanercept (Enbrel) 50 Mg/1 Ml Syringe, 50 MG SQ 1 WEEK, SYRINGE EVERY Monday10/14/16 Levothyroxine Sodium (Levothyroxine Sodium) 100 Mcg Tablet, 1 TAB PO ACB, TAB Once daily before breakfast 10/14/16 Discharge Disposition Please refer to Case Management Notes for patient's disposition. Estimated Blood Loss 50.0 JAMES HARRIS Jan 25, 2017 14:02
--- NOTE | 2017-01-25 15:55 | NUR ---
Discharge Patient discharged to home. Walked to car accompanied by staff. Discharge instructions reviewed including pain control, medications, activities, incision care and follow up appointments. VSS. Pain controlled with po extra strength tylenol. Denies questions. Addendum: 01/25/17 at 1641 by GEORGE FELICIANO RN Went home in car driven by ex-. Family present at home to assist with cares as needed.
[2017-01-25 16:35] VITALS: BP 116/62; PULSE 80; RESP 14; TEMP 98.8; O2SAT 99
[2017-01-26] MEDS ORDERED: MILK OF MAGNESIA 30 ML SUSP PO SCH (08:00)
--- NOTE | 2017-01-26 14:45 | NUR ---
CM VISITED WITH PATIENT REGARDING THE FOLLOWIN. PAIN AT REST: 3 2. PAIN WITH EXERTION: 5-6 3. ANTICOAGULATION: ASA 325MG BID 4. PAIN MEDICATION: ES TYLENOL PRN AND PERCOCET 5. BM: NO, BUT IS PASSING GAS. HAS BEEN TAKING THE HEALTHYLAX
[2017-01-26] MEDS ORDERED: BISACODYL 10 MG SUPPOSITORY RECTALLY SCH (20:00)
== END 2017-01-25 15:55 | disposition home or self-care (01) | DRG 470 ==
LOC: SRG 06:51
PROVIDERS: ADMIT Orthopaedic Surgery; ATTEND Orthopaedic Surgery
PROC: 0SRC0J9 Replacement of Right Knee Joint with Synthetic Substitute, Cemented, Open Approach (ICD-10-PCS; principal; 2017-01-24 09:20)
DX: M17.11 Unilateral primary osteoarthritis, right knee (principal); D64.9 Anemia, unspecified; D72.829 Elevated white blood cell count, unspecified; M06.89 Other specified rheumatoid arthritis, multiple sites; F41.9 Anxiety disorder, unspecified; M79.7 Fibromyalgia; E03.9 Hypothyroidism, unspecified; E66.9 Obesity, unspecified; Z68.38 Body mass index [BMI] 38.0-38.9, adult; G47.33 Obstructive sleep apnea (adult) (pediatric); J44.9 Chronic obstructive pulmonary disease, unspecified; J45.909 Unspecified asthma, uncomplicated; Z87.891 Personal history of nicotine dependence
CPT/HCPCS: 36415; 80048; 85027